=== PATIENT | male | born 1985 | race Caucasian/White ===

== ENCOUNTER 2018-02-17 16:27 | Emergency (ER) | payer MEDICAID ==
[~2018-02-17] VITALS: Ht 190.5 cm; Wt 91.0 kg
[2018-02-17 16:31] VITALS: BP 123/79
[2018-02-17] MEDS ORDERED: DIPH,PERTUSS(ACELL),TET VAC/PF 0.5 ML IM-VACC ONE (17:00)
== END 2018-02-17 19:10 | disposition left against medical advice (07) ==
LOC: ED 19:04
DX: S91.312A Laceration without foreign body, left foot, initial encounter (principal); X58.XXXA Exposure to other specified factors, initial encounter; Y93.11 Activity, swimming; Y99.8 Other external cause status; Y92.828 Other wilderness area as the place of occurrence of the external cause
CPT/HCPCS: 99281

== ENCOUNTER 2018-06-08 21:24 | Observation (INO) | payer MEDICAID ==
[~2018-06-08] VITALS: Ht 182.9 cm; Wt 85.3 kg
[2018-06-08 21:50] LABS: BASOPHILS # (AUTO) 0.04 x10^3/uL (0-0.1); BASOPHILS % (AUTO) 0 % (0-1); EOSINOPHILS # (AUTO) 0.08 x10^3/uL (0-0.4); EOSINOPHILS % (AUTO) 1 % (1-7); LYMPHOCYTES # (AUTO) 1.54 x10^3/uL (1-3.4); LYMPHOCYTES % (AUTO) 11 % (22-44); MD NO; MEAN CORPUSCULAR HEMOGLOBIN 32.8 pg (27.5-34.5); MEAN CORPUSCULAR HGB CONC 33.7 g/dL (33.2-36.2); MEAN CORPUSCULAR VOLUME 97.4 fL (81-97); MEAN PLATELET VOLUME 7.6 fL (7.4-10.4); MONOCYTES # (AUTO) 1.07 x10^3/uL (0.2-0.8); MONOCYTES % (AUTO) 8 % (2-9); NEUTROPHILS # (AUTO) 11.56 x10^3/uL (1.8-6.8); NEUTROPHILS % (AUTO) 81 % (42-75); PLATELET COUNT 271 x10^3/uL (130-400); RED BLOOD COUNT 4.43 x10^6/uL (4.38-5.82); RED CELL DISTRIBUTION WIDTH 15.4 % (9.4-14.8)
[2018-06-08 22:03] LABS: ALBUMIN 2.9 g/dL (3.4-5.0); ANION GAP 8 mmol/L (5-15); CHLORIDE 109 mmol/L (98-107); CREATININE 0.75 mg/dL (0.7-1.3)
[2018-06-08 22:07] LABS: ACETAMINOPHEN < 2 mcg/mL (10-30)
[2018-06-09 00:56] LABS: AMPHETAMINE SCREEN, URINE Negative (Negative); BARBITURATE SCREEN, URINE Negative (Negative); BENZODIAZEPINE SCREEN, URINE Negative (Negative); CANNABINOID SCREEN, URINE Positive (Negative); COCAINE SCREEN, URINE Negative (Negative); METHADONE SCREEN, URINE Negative (Negative); OPIATE SCREEN, URINE Negative (Negative)
[2018-06-09] MEDS ORDERED: LORazepam 1MG TABLET ONE (03:00)
[2018-06-09] MEDS ORDERED: LORazepam 1MG TABLET PO ONE (03:00)
[2018-06-09] MEDS ORDERED: POLYETHYLENE GLYCOL 17 GM PACKET PO PRN (07:30)
[2018-06-09] MEDS ORDERED: LORazepam 1MG TABLET PO PRN (07:30)
[2018-06-09] MEDS ORDERED: ZIPRASIDONE 20 MG INJ IM PRN (07:30)
[2018-06-09] MEDS ORDERED: ONDANSETRON ODT 4 MG PO PRN (07:30)
[2018-06-09] MEDS ORDERED: IBUPROFEN 600 MG TABLET PO PRN (07:30)
[2018-06-09] MEDS ORDERED: ZIPRASIDONE 20MG CAPSULE PO PRN (07:30)
[2018-06-09 08:35] VITALS: BP 98/59
[2018-06-09 08:50] VITALS: BP 98/59
== END 2018-06-09 13:30 ==
LOC: ED 22:09 → EDIP 06-09 02:55 → 2N 06-09 08:28
PROVIDERS: ADMIT Internal Medicine; ATTEND Hospitalist
DX: F20.9 Schizophrenia, unspecified (principal); F29 Unspecified psychosis not due to a substance or known physiological condition; F10.120 Alcohol abuse with intoxication, uncomplicated; F12.90 Cannabis use, unspecified, uncomplicated; R45.850 Homicidal ideations
CPT/HCPCS: 36415; 80048; 80307; 80329; 82040; 85025; 99284; G0378; G0480

== ENCOUNTER 2018-10-04 17:35 | Emergency (ER) | payer SELFPAY ==
[~2018-10-04] VITALS: Ht 193 cm; Wt 85.0 kg
[2018-10-04] MEDS ORDERED: PLEASE ENTER HEIGHT AND WEIGHT MC SCH (17:41)
--- NOTE | 2018-10-04 17:53 | NUR ---
Presents via [facility] by way of [facility] for abnormal behavior including threats "to kill all non white people." Reports hx of schizophrenia/bi-polar. On non meds as he is homeless. On arrival VSS. however appears to be quite manic. Provider to bedside-where order for IM geodon was received then administered. Placed on Psych precautions (placed in gown/belongings itemized and placed in safe keeping/ sitter at bedside)
[2018-10-04] MEDS ORDERED: ZIPRASIDONE 20 MG INJ IM ONE ×2 (17:59→18:00)
[2018-10-04 18:01] LABS: BASOPHILS # (AUTO) 0.04 x10^3/uL (0-0.1); BASOPHILS % (AUTO) 1 % (0-1); EOSINOPHILS # (AUTO) 0.09 x10^3/uL (0-0.4); EOSINOPHILS % (AUTO) 1 % (1-7); LYMPHOCYTES # (AUTO) 2.22 x10^3/uL (1-3.4); LYMPHOCYTES % (AUTO) 24 % (22-44); MD NO; MEAN CORPUSCULAR HEMOGLOBIN 33.6 pg (27.5-34.5); MEAN CORPUSCULAR HGB CONC 35.2 g/dL (33.2-36.2); MEAN CORPUSCULAR VOLUME 95.5 fL (81-97); MEAN PLATELET VOLUME 7.3 fL (7.4-10.4); MONOCYTES # (AUTO) 0.68 x10^3/uL (0.2-0.8); MONOCYTES % (AUTO) 8 % (2-9); NEUTROPHILS # (AUTO) 6.14 x10^3/uL (1.8-6.8); NEUTROPHILS % (AUTO) 67 % (42-75); PLATELET COUNT 315 x10^3/uL (130-400); RED BLOOD COUNT 3.58 x10^6/uL (4.38-5.82); RED CELL DISTRIBUTION WIDTH 13.7 % (9.4-14.8)
[2018-10-04 18:09] LABS: ALBUMIN 3.8 g/dL (3.4-5.0); ANION GAP 7 mmol/L (5-15); CALCIUM 8.7 mg/dL (8.5-10.1); CHLORIDE 109 mmol/L (98-107); CREATININE 0.74 mg/dL (0.7-1.3); SALICYLATE LEVEL 3.6 mg/dL (2.8-20.0)
[2018-10-04 18:11] LABS: ACETAMINOPHEN < 2 mcg/mL (10-30)
--- NOTE | 2018-10-04 19:36 | NUR ---
AWOKEN FOR RE-EVAL. NOW PLEASANT/CALM/DIRECTABLE. PSYCH PRECAUTIONS REMAIN IN PLACE. VSS
[2018-10-04 19:38] VITALS: BP 100/5
[2018-10-04 20:02] LABS: AMPHETAMINE SCREEN, URINE Negative (Negative); BARBITURATE SCREEN, URINE Negative (Negative); BENZODIAZEPINE SCREEN, URINE Negative (Negative); CANNABINOID SCREEN, URINE Positive (Negative); COCAINE SCREEN, URINE Negative (Negative); METHADONE SCREEN, URINE Negative (Negative); OPIATE SCREEN, URINE Negative (Negative)
--- NOTE | 2018-10-04 20:45 | NUR ---
telepsych initiated, [id number] bot placed at BS.
--- NOTE | 2018-10-04 22:09 | NUR ---
Telepsych consult completed, food provided for pt
--- NOTE | 2018-10-04 22:40 | NUR ---
3 bags of belongings returned to pt, pt agrees to get dressed and discharge.
--- NOTE | 2018-10-04 23:17 | NUR ---
3/3 bags of belongings returned to pt, pt denies missing any belongings upon dc.
== END 2018-10-04 23:18 | disposition home or self-care (01) ==
LOC: ED 20:22
DX: F23 Brief psychotic disorder (principal)
CPT/HCPCS: 36415; 80048; 80307; 80329; 82040; 85025; 99284; J3486; G0480

== ENCOUNTER 2020-11-19 22:15 | Emergency (ER) | payer MEDICAID ==
[~2020-11-19] VITALS: Ht 175.3 cm; Wt 80.0 kg
--- NOTE | 2020-11-19 22:34 | NUR ---
ASSUMED CARE OF PATIENT. PATIENT BIB [facility] FOR ALOC. PT WAS FOUND LAYING ON A SIDEWALK DOWNTOWN. PT IS NOT ABLE TO ANSWER TRIAGE QUESTIONS. PSYCH EVAL NOT DONE DUE TO PATIENT LOC. PT IS A C-COLLAR. UNKNOWN TRUAMA PER EMS. DR GOLD AT BEDSIDE.
--- NOTE | 2020-11-19 23:02 | NUR ---
PT RESTING IN ROOM WITH EYES CLOSED. VS STABLE. NO ACUTE DISTRESS NOTED. WILL CONTINUE TO MONITOR.
[2020-11-19] MEDS ORDERED: SODIUM CHLORIDE FLUSH 10ML SYR IVF ONE (23:30)
[2020-11-19] MEDS ORDERED: SODIUM CHLORIDE 0.9% 1,000ML IVBOLUS ONE (23:30)
--- NOTE | 2020-11-19 23:44 | NUR ---
PT IN CT
--- NOTE | 2020-11-20 00:01 | NUR ---
PT BACK FROM CT. VS STABLE. SPIRITUAL MINISTER ON. SINUS TACH NOTED. PT OPENS EYES TO VERBAL COMMANDS, PT IS STILL NOT ABLE TO ANSWER TRIAGE QUESTIONS. CALL LIGHT IN PLACE. WILL CONTINUE TO MONITOR.
--- NOTE | 2020-11-20 00:02 | NUR ---
LAB IN ROOM
[2020-11-20 00:12] LABS: BASOPHILS % (AUTO) 1 % (0-1); EOSINOPHILS % (AUTO) 1 % (1-7); LYMPHOCYTES % (AUTO) 29 % (22-44); MEAN CORPUSCULAR HGB CONC 34.5 g/dL (33.2-36.2); MEAN PLATELET VOLUME 6.9 fL (7.4-10.4); MONOCYTES % (AUTO) 12 % (2-9); NEUTROPHILS % (AUTO) 57 % (42-75); PLATELET COUNT 244 x10^3/uL (130-400); RED BLOOD COUNT 3.85 x10^6/uL (4.38-5.82); RED CELL DISTRIBUTION WIDTH 14.1 % (9.4-14.8)
[2020-11-20 00:21] LABS: ALANINE AMINOTRANSFERASE 35 U/L (12-78); ALBUMIN 3.1 g/dL (3.4-5.0); ANION GAP 6 mmol/L (5-15); CALCIUM 7.8 mg/dL (8.5-10.1); CHLORIDE 116 mmol/L (98-107); CREATININE 0.63 mg/dL (0.7-1.3)
--- NOTE | 2020-11-20 00:22 | NUR ---
PT RESTING IN ROOM WITH EYES CLOSED. REGULAR RESP. VS STDABLE. MAINTENANCE CARPENTER ON. SINUS TACH NOTED. CALL LIGHT IN PLACE. WILL CONTINUE TO MONITOR
[2020-11-20 00:25] LABS: ALKALINE PHOSPHATASE 85 U/L (45-117); BILIRUBIN,TOTAL 0.1 mg/dL (0.2-1.0); TOTAL PROTEIN 6.2 g/dL (6.4-8.2)
[2020-11-20 00:33] LABS: MD SCAN
--- NOTE | 2020-11-20 00:39 | NUR ---
DR GOLD TO BEDSIDE. PT ROLLED FOR A HEAD TO TOE ASSESSMENT. PT REPORTS HE JUST WANTS TO SLEEP. VS STABLE. 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 SINUS TACH NOTED. CALL LIGHT IN PLACE. WILL CONTINUE TO MONITOR.
--- NOTE | 2020-11-20 00:57 | NUR ---
BEDSIDE REPORT FROM SHILPA RAMOS
--- NOTE | 2020-11-20 00:57 | NUR ---
BEDSIDE REPORT GIVEN TO SHILPA ANGEL
[2020-11-20] MEDS ORDERED: SODIUM CHLORIDE 0.9% 1,000 ML IV SCH (00:59)
[2020-11-20] MEDS ORDERED: ONDANSETRON 2MG/ML, 2ML ONE (01:00)
[2020-11-20] MEDS ORDERED: ONDANSETRON 2MG/ML, 2ML IVPush ONE (01:00)
--- NOTE | 2020-11-20 01:07 | NUR ---
PT MEDICATED WITH ZOFRAN TO PREVENT NAUSEA AND VOMITTING DUE TO PT BEING HEAVILY INTOXICATED.
--- NOTE | 2020-11-20 02:25 | NUR ---
PT RESTING ON [email or web address]. WAKES UP TO HIS NAME. ATTACHED TO ALL MONITORS.
--- NOTE | 2020-11-20 04:16 | NUR ---
PT RESTING ON [employer]. WAKES UP TO HIS NAME. ATTACHED TO ALL MONITORS.
--- NOTE | 2020-11-20 06:21 | NUR ---
Radha ponce in ED - 11/20/20 at 0622 by [facility] PT UP AND AMBULATORY TO THE BR WITH A STEADY GAIT. PT CONVERSING AND ANSWERING QUESTIONS APPROPRAITELY. PT PROVIDED T[employer] CAB VOUCHER TO ADDRESS PROVIDED BY PT.
[2020-11-20 06:23] VITALS: BP 98/55
== END 2020-11-20 06:25 | disposition home or self-care (01) ==
LOC: ED 23:48
DX: F10.220 Alcohol dependence with intoxication, uncomplicated (principal); M54.2 Cervicalgia; R41.82 Altered mental status, unspecified; R51.9 Headache, unspecified; Y90.0 Blood alcohol level of less than 20 mg/100 ml
CPT/HCPCS: 36415; 70450; 72125; 80053; 80320; 85025; 96361; 96374; 99285; J2405; J7030; G0480